=== PATIENT | male | born 2000 | race Asian ===

== ENCOUNTER 2019-06-29 06:03 | Emergency (ER) | payer OTHER ==
[~2019-06-29] VITALS: Ht 170.2 cm; Wt 61.4 kg
[2019-06-29] MEDS ORDERED: ISOT30CA PO (06:15)
[2019-06-29] MEDS ORDERED: CARBAMIDE PEROXIDE 6.5% 15 ML OTIC SOLUTION AD ONE (06:30)
[2019-06-29] MEDS ORDERED: KETOROLAC TROMETHAMINE 60 MG/2 ML VIAL IM ONE (06:30)
[2019-06-29] MEDS ORDERED: ACETAMINOPHEN/CODEINE 300-30 MG TABLET PO ONE (06:30)
[2019-06-29 08:43] VITALS: BP 128/81
== END 2019-06-29 09:18 | disposition home or self-care (01) ==
LOC: EMS 06:06
DX: H61.21 Impacted cerumen, right ear (principal); H60.91 Unspecified otitis externa, right ear
CPT/HCPCS: 69209; 96372; 99283; J1885